=== PATIENT | male | born 1990 | race Caucasian/White ===

== ENCOUNTER 2017-05-26 14:34 | Emergency (ER) | payer OTHER ==
[2017-05-26 14:50] VITALS: BP 134/57; PULSE 74; TEMP 99.1; BMI 31.5
--- NOTE | 2017-05-26 14:56 | PDOC ---
History of Present Illness <Reji Dickens - Last Filed: 05/26/17 15:04> - General History Source: Patient Exam Limitations: No Limitations - History of Present Illness Initial Comments: 05/26/17 15:22 The patient is a 26 year old male with no significant PMH who presents to the emergency department with a finger laceration s/p dog bite earlier today. The patient reports being bitten by a known dog on his 1st right finger. He reports speaking with the dog veterinarian small animal who ensured the dog was vaccinated and up to date. He reports applying Bacitracin and a band-aid with the veterinarian small animal shortly after the incident. The patient has no other complaints. Allergies: NKA Past surgical history: None reported. Social history: Social alcohol use. No reported cigarette or drug use. PCP: None reported. <Jean Perdomo - Last Filed: 05/26/17 15:23> - General Chief Complaint: Bite Stated Complaint: DOG BITE Time Seen by Provider: 05/26/17 14:49 Past History - Past Medical History COPD: No - Immunization History TDAP Vaccination: Yes (07/25/16) - Suicide/Smoking/Psychosocial Hx Smoking History: Never smoked Hx Alcohol Use: Yes (SOCIAL) Drug/Substance Use Hx: No Substance Use Type: None <Reji Dickens - Last Filed: 05/26/17 15:04> <Jean Perdomo - Last Filed: 05/26/17 15:23> - Past Medical History Allergies/Adverse Reactions: Allergies Allergy/AdvReac Type Severity Reaction Status Date / Time No Known Allergies Allergy Verified 05/26/17 14:42 Home Medications: Ambulatory Orders Amoxicillin/Potassium Clav [Augmentin 875-125 Tablet] 1 each PO BID 7 Days #14 tablet 05/26/17 Review of Systems - Review of Systems Able to Perform ROS?: Yes Comments:: 05/26/17 15:22 A complete review of 10 out of 10 review of systems is taken and is negative apart from what is previously mentioned below and in the HPI. <Jean Perdomo - Last Filed: 05/26/17 15:23> *Physical Exam - Vital Signs Last Vital Signs Temp Pulse Resp BP Pulse Ox 99.1 F 74 15 134/57 97 05/26/17 14:36 05/26/17 14:36 05/26/17 14:36 05/26/17 14:36 05/26/17 14:36 <Reji Dickens - Last Filed: 05/26/17 15:04> - Vital Signs Last Vital Signs Temp Pulse Resp BP Pulse Ox 99.1 F 74 15 134/57 97 05/26/17 14:36 05/26/17 14:36 05/26/17 14:36 05/26/17 14:36 05/26/17 14:36 - Physical Exam Comments: 05/26/17 15:22 Vitals: Triage Vital signs reviewed General Appearance: no acute distress, well nourished well developed, Head: Atraumatic, normocephalic Chest Wall: Nontender Cardiac: Regular rate and rhythm, no murmurs, no rubs, no gallops, Lungs: Clear to auscultation bilateral, good air movement bilaterally, Skin: (+) 0.5cm avulsion to tip of the 1st right finger. Rectal: Exam deferred <Jean Perdomo - Last Filed: 05/26/17 15:23> Medical Decision Making - Medical Decision Making 05/26/17 15:04 Small avulsion injury after dog bite. Dog is on the patient's postal route well- appearing vaccines up-to-date [facility] paperwork completed. Abrasion irrigated and covered with bacitracin. We'll cover with seven-day course of Augmentin patient return to ED for any signs of infection or for any concerns Findings, the need for follow-up, strict return instructions discussed with patient. <Reji Dickens - Last Filed: 05/26/17 15:04> *DC/Admit/Observation/Transfer - Discharge Dispostion Admit: No <Reji Dickens - Last Filed: 05/26/17 15:04> - Attestations Scribe Attestion: 05/26/17 15:23 Documentation prepared by Jean Perdomo, acting as er medical technician for Reji Dickens MD. <Jean Perdomo - Last Filed: 05/26/17 15:23> Diagnosis at time of Disposition: Dog bite Qualifiers: Encounter type: initial encounter Qualified Code(s): W54.0XXA - Bitten by dog, initial encounter - Discharge Dispostion Disposition: HOME Condition at time of disposition: Good - Prescriptions Prescriptions: Amoxicillin/Potassium Clav [Augmentin 875-125 Tablet] 1 each PO BID 7 Days #14 tablet - Patient Instructions Printed Discharge Instructions: DI for Animal Bites Additional Instructions: Wash twice a day soap and water. Then dry cover with bacitracin twice a day. Take Augmentin as prescribed. Return to the emergency department immediately for any redness swelling pus fever signs of infection or for any concerns. - Post Discharge Activity Forms/Work/School Notes: Back to Work
== END 2017-05-26 15:21 | disposition home or self-care (01) ==
LOC: FER 14:34
CPT/HCPCS: 99282-25